=== PATIENT | male | born 1945 | race Caucasian/White ===

== ENCOUNTER → 2017-03-07 | Day surgery (SDC) | payer MEDICARE, OTHER ==
[~2017-03-07] VITALS: Ht 185.4 cm; Wt 95.7 kg
[~2017-03-07] MED LIST: Lactated Ringer's 1,000 ML IV ONE; MULT-1018 PO; NAPR220C11 PO; PANT40TA2 PO; PRAV40TA PO; mucinex; vitamin d3
[2017-03-07 05:52] VITALS: BP 139/78; PULSE 52; RESP 17; O2SAT 100
== END | disposition home or self-care (01) ==
LOC: SAS 05:33
PROVIDERS: ATTEND Neurological Surgery
DX: D49.6 Neoplasm of unspecified behavior of brain (principal); Z79.899 Other long term (current) drug therapy

== ENCOUNTER 2017-03-11 05:34 | Day surgery (SDC) | payer MEDICARE, OTHER ==
[~2017-03-11] VITALS: Ht 185.4 cm; Wt 95.7 kg
[~2017-03-11 05:34] MED LIST changes: -Lactated Ringer's 1,000 ML IV ONE
[2017-03-11] MEDS ORDERED: Propofol 10,000 mCg/mL 20 mL Inj ONE (05:35)
[2017-03-11] MEDS ORDERED: fentaNYL-PF 50 mCg/mL 2 mL Inj ONE (05:35)
[2017-03-11] MEDS: Lactated Ringer's 1,000 ML IV SCH ×2 (05:56→07:32)
[2017-03-11 05:57] VITALS: BP 121/73; PULSE 57; RESP 16; O2SAT 98
--- NOTE | 2017-03-11 07:23 | PCM.HPANE ---
Patient Data Surgeon Admitting Provider: Attending Provider:Jacques Noriega MD Primary Care Physician:Joshua Mckenna MD Other Provider:Janae Felizingham Anesthesia Reason for Visit Secondary Malignant Neoplasm Of Brain Ht/WT & BMI Height (Feet): 6 Height (Inches): 1.00 Weight (Kilograms): 95.700 Body Mass Index 27.00 Allergies Coded Allergies: No Known Allergies (Unverified , 02/28/17) Past Anesthesia History Anesthesia History: Denies:: Abnormal Airway, Anesthesia Reactions, Difficult Intubation, Fam Anesthesia Reaction, Fam Malignant Hypertherm, Malignant Hyperthermia Diabetes History Hx Diabetes?: No MRSA MRSA: No Medications Home Meds Incl Beta Hu: No Reported Medications Multivitamin (Multi Vitamin Daily)1 Each Tablet1 Each PO DAILY 30 Days Ref 0 02/28/17 [vitamin d3] No Conflict Check Daily 02/28/17 Naproxen Sodium (Aleve)220 Mg [id number] Mg PO PRN For Pain 02/28/17 [mucinex] No Conflict CheckUnknown Dose PRN For Congestion 02/28/[address] (Protonix)40 Mg Prnzww88 Mg PO DAILY Ref 0 02/28/17 Pravastatin 40 Mg Tvllws43 Mg PO DAILY Ref 0 02/28/17 History History of ENT Problems?: Yes HEENT History: Positive for:: Hearing Problem Sinus Problem ("lots of mucous") Denies:: Abnormal Airway Cataracts Difficult Intubation Dysphagia TMJ Denture Type: None Teeth Condition: Within Normal Limits Hx of Heart Problems?: No Cardiovascular History: Denies:: AICD Abdominal Aortic Aneurism Atrial Fibrillation Cardiac Surgery Chest Pain Congestive Heart Failure Coronary Artery Disease Edema Heart Murmur Hypertension Irregular Heartbeat Pacemaker Peripheral Vascular Rheumatic Fever Thrombophlebitis Valvular Heart Disease Hx of Respiratory Problem?: Yes Respiratory History: Positive for:: Dyspnea (sob on exertion) Oxygen Administration (at times 2L at noc- rare during day) Use of C-PAP Machine Denies:: Asthma COPD Emphysema Pneumonia Tuberculosis Hx Neurologic Problems?: Yes Neurological History: Denies:: CVA Dizziness Headaches Multiple Sclerosis Parkinson's Disease Seizures Hx of GI Problems?: Yes Hx of Problems?: No Genitourinary History: Denies:: Kidney Stones Urinary Tract Infection Male Hx: Denies:: Prostate Problems Skin History: Denies:: History Skin Disorders? 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 ) Denies:: Back Injury Musculoskeletal Trauma Hx of Psycho/Social Problems?: No Psycho Social History: Denies:: Anxiety Hx Depression Hx Surgeries?: Yes (left total knee, craniotomy, melanoma excision) Hx Any Other Health Problems?: Yes Other History: Positive for:: Cancer (metastatic melanoma- orig site forearm) Denies:: Thyroid Disease History Blood Transfusions: Denies:: Blood Transfusions Hx Diabetes: No Hx Alcohol Use: YesHx Substance Use: No Smoking Status: Never Smoker Have You Smoked inLast 12 mo: No Stop/Bang P-Blood Pressure: treated: No B- Body Mass Index > 35 kg/m2: No A- Age over 50: Yes N- Neck Large Circumference: No G- Gender Male: Yes Risk Assessment Category Category 1A: Patient has history of documented sleep apnea, and HAS NOT received any narcotic, sedative or anesthesia administration during this stay. Category 1B: Patient has history of documented sleep apnea, and HAS received any narcotic , sedative or anesthesia administration during this stay Category 2: Patient has SUSPECTED Obstructive Sleep Apnea, and HAS received any narcotic , sedative or anesthesia administration during this stay. Category 3: Patient has SUSPECTED Obstructive Sleep Apnea and HAS NOT received narcotic, sedative or anesthesia administration during this stay. Category 4: Outpatient in Procedural Areas with known sleep apnea or who screen positive for High Risk via the STOP/BANG questionnaire. Exam Exam Vital Signs Vital Signs Date Time Temp Pulse Resp B/P Pulse Ox O2 Delivery O2 Flow Rate FiO2 03/11/17 06:00 Supplement Oxygen 03/11/17 05:57 36.2 57 16 121/73 98 Room Air General Appearance: Alert, Oriented X3, Cooperative, Mild Distress HEENT/AIRWAY: MP 2, Neck Movement (thick, from), Mouth Opening (wnl) Lungs: Clear to Auscultation Heart: Exam Unremarkable Meds/Labs/Diagnostics Admission Meds Current Medications Lactated Ringer's (Lr) 1,000 ml @ 120 mls/hr [id number] IV Last administered on t 05:56; Start 03/11/17 at 05:00; Stop 03/11/17 at 13:19 Plan Impression Patient chart reviewed, patient interviewed and anesthestic plan with risks, benefits, and alternatives discussed, and informed consent obtained. ASA Physical Status: ASA2 Mod Systemic Disease Anesthetic Plan: MAC Bene/Risks/Altern/Consents: Yes HP Complete Prior to Induction: Yes Hubert Landers MD Mar 11, 2017 07:23
[2017-03-11] MEDS ORDERED: Lactated Ringer's 1,000 ML IV SCH (07:27)
[2017-03-11] MEDS ORDERED: Lactated Ringer's 500 ML IV PRN (07:27)
[2017-03-11] MEDS ORDERED: HYDROmorphone 1 mg/mL Inj IVPUSH PRN (07:30)
[2017-03-11] MEDS ORDERED: Atropine 0.4 mg/mL Inj IVPUSH PRN (07:30)
[2017-03-11] MEDS ORDERED: hydrALAZINE 20 mg/mL Inj IVPUSH PRN (07:30)
[2017-03-11] MEDS ORDERED: fentaNYL-PF 50 mCg/mL 2 mL Inj IVPUSH PRN (07:30)
[2017-03-11] MEDS ORDERED: Labetalol 5 mg/mL 4 mL Inj IV PRN (07:30)
[2017-03-11] MEDS ORDERED: Phenylephrine 10,000 mCg/mL Inj IVPUSH PRN (07:30)
[2017-03-11] MEDS ORDERED: EPHEDrine Sulfate 50 mg/mL Inj IVPUSH PRN (07:30)
[2017-03-11] MEDS ORDERED: Dexamethasone 4 mg/mL Inj IVPUSH PRN (07:30)
[2017-03-11] MEDS ORDERED: Ondansetron 2 mg/mL 2 mL Inj IVPUSH PRN (07:30)
[2017-03-11] MEDS ORDERED: Lidocaine 1%-Epi 1:100,000 20 mL Inj INJ ONE (07:32)
[2017-03-11 08:00] VITALS: BP 119/59; PULSE 65; RESP 16; O2SAT 97
--- NOTE | 2017-03-11 08:00 | PCM.ANEP1 ---
Post Anesthesia PACU Phase 1 Assessment Vital Signs Vital Signs Date Time Temp Pulse Resp B/P Pulse Ox O2 Delivery O2 Flow Rate FiO2 03/11/17 06:00 Supplement Oxygen 03/11/17 05:57 36.2 57 16 121/73 98 Room Air Anesthetic Administered: MAC Level of Alertness: Awake, talking DE LEON's with Equal Strength: Yes Pain: No Nausea or Vomiting: No CV Function & Hydration Stable: Yes Airway Device: Oxygen Delivery: Room Air Lungs: Clear to Auscultation PACU Phase 2 Assessment Complications: No Follow up Care: No Patient Instructions Provided: N/A Hubert Landers MD Mar 11, 2017 08:00
[2017-03-11 08:19] VITALS: BP 127/63; PULSE 59; RESP 17; O2SAT 98
--- NOTE | 2017-03-11 14:10 | OP ---
[address] [address] OPERATIVE REPORT PATIENT: EFRAIN IBARRA : 1945 MR#: [id number] ADMIT: 03/11/2017 JOB ID: [id number] DATE OF SURGERY: 03/11/2017 SURGEON: Jacques Noriega MD. PREOPERATIVE DIAGNOSIS(ES): Metastatic brain tumor. POSTOPERATIVE DIAGNOSIS(ES): Metastatic brain tumor. PROCEDURE: Insertion of gold bead skull markers for stereotactic radiosurgery. FLEET MANAGER/DISPATCH: None. ANESTHESIA: Local with sedation. OPERATIVE PROCEDURE: Patient was brought to the operating room and identified. Time-out was performed. IV sedation was administered. The areas of the scalp for gold bead insertion were prepped with DuraPrep and then injected with Marcaine containing epinephrine. A 3 mm incision was made and a drill guide was passed through the incision down to the skull surface and then a power drill was used to create a hole to a depth of 3 mm and the gold bead was inserted into the hole. The wound was sealed with Dermabond. This was done in the right frontal region, the right posterior temporal region, and the left posterior frontal region for a total of three gold beads. There was no blood loss. There were no operative complications. The patient was transferred back to the recovery unit in stable condition.
== END 2017-03-11 23:59 | disposition home or self-care (01) ==
LOC: SAS 05:34
PROVIDERS: ATTEND Neurological Surgery
DX: C79.31 Secondary malignant neoplasm of brain (principal); Z85.820 Personal history of malignant melanoma of skin; J84.10 Pulmonary fibrosis, unspecified
CPT/HCPCS: A4648; C9728; J2250; J3010; J7120